=== PATIENT | female | born 1965 | race Caucasian/White ===

== ENCOUNTER 2024-03-08 17:07 | Emergency (ER) | payer MEDICARE, OTHER, SELFPAY ==
[2024-03-08 17:12] VITALS: BP 118/81
--- NOTE | 2024-03-08 18:04 | ED.MUSCINJ ---
HPI-Injury
General
Chief Complaint: Musculo-Skeletal Complaint
Source: patient
Exam Limitations: none
Time Seen by Provider: 03/08/24 17:50
Nursing documentation reviewed up to this point in time: agreed with
History of Present Illness-Injury
Is this injury a work related problem?: No
Is pt an associate of [facility]/[place]?: No
Initial Injury comments:
59-year-old female presents with left wrist pain status post slip and fall just prior to arrival history of MS was wearing her splints fell onto an outstretched hand moderate pain in her wrist worse with movement better with rest no neck pain no
direct head strike, no blood thinners
Past History
Past History
ED Past Medical History: Hypothyroidism and Other (MS, maintained on Ampyra)
ED Past Surgical History: None
Social History
Tobacco: Non-smoker
Alcohol: Occasional
Drug: None
Personal: Single
Living: alone
Employment: Not employed
Family History
Family History: Other (Noncontributory)
Review of Systems
Review of Systems
All Other Systems: Not applicable
Respiratory: Reports no symptoms
Cardiac: Reports no symptoms
ABD/GI: Reports no symptoms
Musculoskeletal: Reports joint pain
Phy Exam
Physical Exam
Physical Exam:
Physical Exam
General: no apparent distress, not acutely ill
Neck: No tongue bite no posterior neck pain midline trach
Lungs: no acute respiratory distress.
Neuro: alert and oriented.
Skin: no rash
Psychiatric: well kept. interactive and cooperative
Extremities: Mild to moderate tenderness left distal radius strong radial pulse
Injury Course
Orders/Labs/Results
Orders:
Orders
03/08/24 17:15
Wrist, Left 3 Views CR [CR Wrist - Left Min 3 Views] Urgent
Comment:
Reason For Exam: injury
03/08/24 18:03
Sling Left-Treatment ONCE
Ibuprofen [Motrin] 600 mg PO NOW STA
03/08/24 18:04
Splints/Slings/Crut- Treatment ONCE
MDM/Problems Addressed
Differential Diagnosis Includes:
Strain strain contusion fracture
MDM/Problems Addressed:
Wrist fracture
Chronic conditions affecting care:
MS
Acute Exacerbation and/or Progression of Chronic Illness:
MS
*Radiology
Radiology exam reviewed: radiology read reviewed
*Pulse Oximetry
Patient hypoxic: no
*Critical Care Note
Total Time (30-74mins, 75-104mins- exclusive of procedures): Not Applicable
Update Note
Update Note:
X-ray noted sling and splint for comfort Motrin ice follow-up orthopedics
ED Attending Note
-
Portions of this chart may have been created with voice recognition software.� Occasional wrong word or��sound alike� substitutions may have occurred due to the inherent limitations of voice recognition software.
Discharge Plan
Departure
Patient Disposition: Home (Routine Discharge)
Date of Disposition: 03/08/24
Time of Disposition: 17:57
Patient with high blood pressure during this ER visit?: No
Condition: Good
Discharge Problem:
Fracture of wrist
Instructions: Ibuprofen, How to Use a Shoulder Sling, Splint Care
Prescriptions:
No Action
dalfampridine [Ampyra] 10 MG tablet extended release 12 hr
10 mg PO Q12
cholecalciferol (vitamin D3) 2,000 UNITS tablet
2,000 units PO DAILY
ocrelizumab [Ocrevus] 300 MG/10 ML solution
600 mg IV [id number]
Patient Comments:
01/01/22: Per patient, due for next dose on 01/03/22
Referrals:
Asad Polk MD [Active] - Next open appointment
Interventions
Interventions:
*Risk Screen - Suicide Last Done: 03/08/24 17:14
*General Assessment Last Done: 03/08/24 17:12
*Neglect/Abuse Screening Last Done: 03/08/24 17:12
ED- Fall Risk Assessment Last Done: 03/08/24 17:45
ED-Musculoskeletal Assessment Last Done: 03/08/24 17:45
Discharge Date and Time
Print Language: [place]
[2024-03-08] MEDS: MOTRIN 600 MG PO (18:27)
== END 2024-03-08 18:55 | disposition home or self-care (01) ==
LOC: EMR 17:07
PROVIDERS: EMERGENCY PHYSICIAN Emergency Medicine; FAMILY PHYSICIAN Family Medicine
DX: S52.572A Other intraarticular fracture of lower end of left radius, initial encounter for closed fracture (principal); W01.0XXA Fall on same level from slipping, tripping and stumbling without subsequent striking against object, initial encounter
CPT/HCPCS: 99283; 29125; 73110

== ENCOUNTER 2024-03-14 23:24 | Emergency (ER) | payer MEDICARE, OTHER, SELFPAY ==
[2024-03-14 23:31] VITALS: BP 132/80
--- NOTE | 2024-03-14 23:56 | ED.GENMED ---
History of Present Illness
General
Chief Complaint: Musculo-Skeletal Complaint
Time Seen by Provider: 03/14/24 23:56
History of Present Illness
History of Present Illness:
HPI: The patient was seen here 6 days ago and was found to have a subtle nondisplaced fracture of the distal radius. More recently she has been having some issues with diarrhea which is rather significant she was cleaning herself. She came in
because she went to have the splint reapplied. She has still has some ongoing discomfort at the left wrist informed to see orthopedic in 2 days.
EXAM:
GENERAL: Well appearing in no distress
HEENT: Moist oral mucosa
NEUROLOGIC: Excellent strength all extremities, no coordination deficits
PSYCHIATRIC: Appropriate mental status, normal insight and judgement
EXTREMITIES: She has some slightly decreased active range of motion at the left wrist but there is no obvious deformity
SKIN: No rash, no lesions
TIME OF INITIAL ENCOUNTER: 12:20 AM
NUMBER AND COMPLEXITY OF PROBLEMS ADDRESSED AT THE ENCOUNTER
� Chronic conditions affecting care: History of MS, anxiety
� Acute Exacerbation and/or Progression of Chronic Illness: This is an acute problem
� Differential Diagnosis includes: Acute viral diarrheal illness, viral gastroenteritis, known distal radius fracture
AMOUNT AND/OR COMPLEXITY OF DATA TO BE REVIEWED AND ANALYZED
� I performed an independent evaluation of and my interpretation is:
EKG:
CT:
X-rays:
Laboratory Studies:
Other:
� Review of other/old records: I reviewed the notes and the x-rays from 03/08/2024 showed a subtle nondisplaced fracture of the distal radius
� Clinical information was obtained by an independent historian: None needed
� Prescriptions/Medications Considered but not given:
� Further testing considered but not performed:
RISK OF COMPLICATIONS AND/OR MORBIDITY OR MORTALITY OF PATIENT MANAGEMENT
� Social determinants of health affecting care: Came in here from [facility] earlier tonight and reportedly police were called earlier
� Discussion with other providers:
� Escalation of care including admission/observation vs risk of discharge considered: The patient tells me that she only came in here because she wanted the splint reapplied.
Past History
Past History
ED Past Medical History: Hypothyroidism and Other (MS, maintained on Ampyra)
ED Past Surgical History: None
Social History
Tobacco: Non-smoker
Alcohol: Occasional
Drug: None
Personal: Single
Living: alone
Employment: Not employed
Family History
Family History: Other (Noncontributory)
Phy Exam
Physical Exam
Physical Exam:
See HPI
Course
Orders/Labs/Results
Orders:
Orders
03/15/24 00:25
Volar Left-Treatment ONCE
Vital Signs
Initial and Last Documented VS:
Initial Vital Signs
Temp Pulse Resp BP Pulse Ox
97.8 F 100 22 132/80 98
03/14/24 23:31 03/14/24 23:31 03/14/24 23:31 03/14/24 23:31 03/14/24 23:31
Last Documented Vital Signs
Temp Pulse Resp BP Pulse Ox
97.8 F 100 22 132/80 98
03/14/24 23:31 03/14/24 23:31 03/14/24 23:31 03/14/24 23:31 03/14/24 23:31
*Critical Care Note
Total Time (30-74mins, 75-104mins- exclusive of procedures): Not Applicable
ED Attending Note
-
Portions of this chart may have been created with voice recognition software.� Occasional wrong word or��sound alike� substitutions may have occurred due to the inherent limitations of voice recognition software.
Discharge Plan
Departure
Prescriptions:
No Action
dalfampridine [Ampyra] 10 MG tablet extended release 12 hr
10 mg PO Q12
cholecalciferol (vitamin D3) 2,000 UNITS tablet
2,000 units PO DAILY
ocrelizumab [Ocrevus] 300 MG/10 ML solution
600 mg IV [id number]
Patient Comments:
01/01/22: Per patient, due for next dose on 01/03/22
Interventions
Interventions:
*Risk Screen - Suicide Last Done: 03/14/24 23:31
*Neglect/Abuse Screening Last Done: 03/14/24 23:31
DE-[id number] Assessment Last Done: 03/15/24 00:25
ED-Musculoskeletal Assessment Last Done: 03/15/24 00:25
Discharge Date and Time
Print Language: CYMRO
== END 2024-03-15 01:21 | disposition home or self-care (01) ==
LOC: EMR 23:24
PROVIDERS: EMERGENCY PHYSICIAN Emergency Medicine; FAMILY PHYSICIAN Family Medicine
DX: S52.502A Unspecified fracture of the lower end of left radius, initial encounter for closed fracture (principal); X58.XXXA Exposure to other specified factors, initial encounter; R19.7 Diarrhea, unspecified; E03.9 Hypothyroidism, unspecified; G35 Multiple sclerosis; F41.9 Anxiety disorder, unspecified; Z79.899 Other long term (current) drug therapy; Z88.1 Allergy status to other antibiotic agents; Z88.7 Allergy status to serum and vaccine
CPT/HCPCS: 99283; 29125